=== PATIENT | female | born 1950 ===

== ENCOUNTER → 2020-12-07 14:57 | Outpatient (BNVA) | payer BC, SELFPAY | PROVIDERS: PCP Internal Medicine; Visit Provider Anesthesiology ==

== ENCOUNTER 2020-12-10 10:57 | Day surgery (SDC) | payer BC, SELFPAY ==
--- NOTE | ~2020-12-10 | FL_ITS ---
EXAMINATION: XR FLUOROSCOPY WITH IMAGES CLINICAL INFORMATION: Intrathecal drug delivery trial. COMPARISON: None. TECHNIQUE: Fluoroscopy performed by Dr. Shaun Cordero. Fluoroscopy time: 0.2 minutes DAP: 16.9 mGycm2 Images: 2 FINDINGS: 2 images obtained lumbar spine with needle positioned posterior to L4-L5 disc level intrathecally. Mild spondylosis seen throughout. The vertebral heights are normal. No lytic process. FL/FL guidance in OR IMPRESSION: Degenerative spondylosis throughout lumbar spine. No visible acute fracture or dislocation seen. Needle positioned intrathecally at the L4-L5 disc level.
[2020-12-10 11:26] VITALS: BMI 35.3
[2020-12-10 11:31] VITALS: BP 140/77; PULSE 88; RESP 18; TEMP 36.9; O2SAT 100
[2020-12-10 12:35] VITALS: BP 125/72; PULSE 89; RESP 18; TEMP 36.4; O2SAT 98
--- NOTE | 2020-12-10 12:35 | P.HPSUR_ITS ---
Pre-Procedural Eval Section A Date of Service: 12/10/20 The patient is an INPATIENT: No Changes since office visit: Yes Changes in Medication and Yes Patient answered all questions Section B Chief Complaint: Malignant Neoplasm of Breast and Bone Details of Present Illness: as above plus chronic pain syndrome Relevant Family History (Specify if Yes): No Relevant Social History: None Present Medications: see Short Stay Collaborative assessment Medical History: No relevant PMH History of Previous Operations: Relevant previous surgery/procedure and date(s) (mastectomy) Allergies: Allergies Allergy/AdvReac Type Severity Reaction Status Date / Time No Known Allergies Allergy Verified 12/07/20 15:42 Review of Systems Sugical H&P ROS: Negative: Cardiovascular, Respiratory, Neurological, Psychiatric, Hem-Onc, Allergic/Immunologic, Gastrointestinal, Genitourinary, Musculoskeletal, Integumentary, Endocrine and Eyes/Ears/Nose/Throat and Yes, Specify: Constitution (morbid obesity) Exam Surgical H&P Exam: Normal: HEENT, Normal: Heart, Normal: Lungs, Normal: Extremities, Normal: Skin and Normal: Neurological and Significant Findings: Ab domen (enlarged 2 to intraabd and s/q fat) Plan Diagnosis/Plan: Unchanged I have reviewed the history and physical and performed a pertinent physical examination on my patient. No changes have occurred unless specified.
--- NOTE | 2020-12-10 12:38 | P.BOP_ITS ---
Brief Operative Note Date of Service: 12/10/20 Pre-op diagnosis: breast cancer with mtx lumbar and thoracic spine, chronic pain syndrome Post-op diagnosis: same Procedure: trial of a pain pump with morphine Implants: none Surgeon: Shaun Cordero MD Anesthesia: none Was an Senior Designer/Art Director used for this Procedure?: No Estimated blood loss (mL): 1 Pathology: none sent Condition: stable Disposition: PACU
--- NOTE | 2020-12-10 12:40 | P.OP_ITS ---
Operative Note Operative Note Date of Service: 12/10/20 Narrative: Yuridia is very pleasant 70 y.o. female who is suffering from breast cancer with metastasis on the lumbar and thoracic spine she came to my office with request on pain management. She was offered trial of intrathecal drug delivery system pain pump morphine. She agreed to go with the trial. After obtaining informed consent patient was taking to the operating room where she was positioned prone on operating table. [employer] monitors were applied but patient was not sedated. Time-out was performed delineating correct site and side of the procedure, date of of the patient in the name of the patient nature of the procedure. The patient participated in her time-out. Patient's lower back was prepped with ChloraPrep and draped with the utilities drapes. Sterilely draped C-arm was brought of the operating field and sq picture of L3-L4 and L5 vertebra were demonstrated on the screen. The projection of the L3 and L4 vertebra as were chosen as the target for the needle insertion. The right lamina projection of L4 was chosen as the injection site of local anesthetic. 2 cc of lidocaine 2% was used to raise a skin wheal. After that 22 gauge 3-1/2 inch needle Qu[place]ke point was inserted through the skin and advanced to were the spinal canal under anterior posterior and lateral views. When the lateral view the tip of the needle and rid of per proximity of the centroid of the spinal canal the stylet was removed and free flow of CSF was demonstrated in the hub of the needle. 2.5 cc of solution of preservative-free morphine in normal saline containing 250 micro g of morphine was injected very slowly into the intrathecal space. After that needle was removed sterile dressing was applied. Patient was carefully transferred on the stretcher where she was positioned sup ine with the next 40 minutes on the operating table. patient was in PACU where she recovered uneventfully.
[2020-12-10 12:50] VITALS: BP 124/76; PULSE 82; RESP 16; O2SAT 98
[2020-12-10 13:05] VITALS: BP 123/76; PULSE 83; RESP 16; O2SAT 99
[2020-12-10 13:20] VITALS: BP 131/77; PULSE 88; RESP 16; O2SAT 99
[2020-12-10 13:34] VITALS: BP 128/78; PULSE 86; RESP 16; TEMP 36.4; O2SAT 99
== END 2020-12-10 13:38 | disposition home or self-care (01) ==
PROVIDERS: PCP Internal Medicine; Visit Provider Anesthesiology
PROC: (CPT 62323; principal; 2020-12-10 12:00)
DX: G89.4 Chronic pain syndrome (principal); M54.50 Low back pain, unspecified; C50.919 Malignant neoplasm of unspecified site of unspecified female breast; C79.51 Secondary malignant neoplasm of bone; M19.90 Unspecified osteoarthritis, unspecified site; M51.36 Other intervertebral disc degeneration, lumbar region
CPT/HCPCS: 62323; J2270; Q9967

== ENCOUNTER → 2020-12-17 08:25 | Outpatient (BNVA) | payer BC, SELFPAY | PROVIDERS: PCP Internal Medicine; Visit Provider Anesthesiology ==

== ENCOUNTER → 2020-12-30 09:50 | Outpatient (BNVA) | payer BC, SELFPAY | PROVIDERS: PCP Internal Medicine; Visit Provider Anesthesiology ==